=== PATIENT | male | born 1985 | race Caucasian/White ===

== ENCOUNTER 2017-03-04 02:56 | Emergency (ER) | payer MEDICAID ==
[2017-03-04] MEDS ORDERED: ONDANSETRON HCL IV 4 MG/2 ML VIAL IVP ONE (03:00)
[2017-03-04] MEDS ORDERED: 0.9 % SODIUM CHLORIDE 1000ML 1,000 ML IV SCH (03:00)
[2017-03-04] MEDS ORDERED: KETOROLAC 30 MG/ML VIAL IVP ONE (03:00)
--- NOTE | 2017-03-04 03:04 | Emergency Department Record ---
History of Present Illness - General Chief Complaint: Abdominal Pain Stated Complaint: ABDOMINAL PAIN Source: Patient Mode of Arrival: EMS Limitations: No limitations - History of Present Illness Initial Comments: 31 yo male presents to ED with a CC of right sided upper abdominal pain that began suddenly while using a punching bag prior to arrival. Patient reports nausea/vomiting x 1, denies health problems at his baseline, denies previous surgery. Patient denies difficultly in breathing, reports oxygen helped with his pain symptoms. MD Complaint: Abdominal pain Onset/Timin -: Minutes(s) Location: RUQ Radiation: R flank Severity: Moderate Quality: Aching Consistency: Constant Improves With: Nothing Worsens With: Movement Associated Symptoms: Vomiting - Related Data Previous Rx's Medication Instructions Recorded Hydrocodone/Acetaminophen [Weston 1 tab PO Q6H PRN #10 tab 03/04/17 5mg/325mg] Tamsulosin HCl [Flomax] 0.4 mg PO DAILY #14 cap.er.24h 03/04/17 Allergies Allergy/AdvReac Type Severity Reaction Status Date / Time CHOCOLATE Allergy ANAPHYLAXIS Uncoded 10/24/16 22:15 Review of Systems Constitutional: Denies: Chills, Fever, Malaise, Night sweats Eyes: Denies: Eye discharge, Eye pain, Photophobia ENT: Denies: Congestion, Ear pain, Epistaxis Respiratory: Denies: Cough, Dyspnea Cardiovascular: Denies: Chest pain, Dyspnea on exertion Endocrine: Denies: Fatigue, Heat or cold intolerance Gastrointestinal: Reports: Abdominal pain, Nausea, Vomiting Genitourinary: Denies: Incontinence, Retention Musculoskeletal: Denies: Arthralgia, Back pain, Gout, Joint swelling Skin: Denies: Bruising, Change in color Neurological: Denies: Abnormal gait, Confusion, Headache, Seizure Psychiatric: Denies: Anxiety Hematological/Lymphatic: Denies: Anemia, Blood Clots Past Medical History - SOCIAL HISTORY Smoking Status: Current every day smoker Drug Use: None - RESPIRATORY Hx Respiratory Disorders: No - CARDIOVASCULAR Hx Cardio Disorders: Yes Hx Heart Attack: Yes (X 2 "PROBABLY 2-3 YRS AGO" no stents) - NEURO Hx Neuro Disorders: Yes Hx Seizures: Yes (2-3 YRS AGO) - GI Hx GI Disorders: No - Hx Genitourinary Disorders: No - ENDOCRINE Hx Endocrine Disorders: No - MUSCULOSKELETAL Hx Musculoskeletal Disorders: No - PSYCH Hx Psych Problems: No - HEMATOLOGY/ONCOLOGY Hx Hematology/Oncology Disorders: No Family Medical History Hx Heart Disease: Father Physical Exam - General General Appearance: Alert, Oriented x3, Cooperative, Moderate distress Limitations: No limitations - Head Head exam: Atraumatic, Normocephalic, Normal inspection Head exam detail: negative: Abrasion, Contusion, Koehler's sign, General tenderness, Hematoma, Laceration - Eye Eye exam: Normal appearance. negative: Conjunctival injection, Periorbital swelling, Periorbital tenderness, Scleral icterus - ENT Ear exam: negative: Auricular hematoma, Auricular trauma Nasal Exam: negative: Active bleeding, Discharge, Dried blood, Foreign body Mouth exam: negative: Drooling, Laceration, Muffled voice, Tongue elevation - Neck Neck exam: Normal inspection. negative: Meningismus, Tenderness - Respiratory Respiratory exam: Normal lung sounds bilaterally. negative: Rales, Respiratory distress, Rhonchi, Stridor - Cardiovascular Cardiovascular Exam: Regular rate, Normal rhythm, Normal heart sounds - GI/Abdominal GI/Abdominal exam: Soft, Tenderness, Other (TTP RUQ on examination, no rebound or guarding present.). negative: Rebound, Rigid - Rectal Rectal exam: Deferred - exam: Deferred - Extremities Extremities exam: Normal inspection. negative: Pedal edema, Tenderness - Back Back exam: Denies: CVA tenderness (R), CVA tenderness (L) - Neurological Neurological exam: Alert, Oriented X3 - Psychiatric Psychiatric exam: Normal affect, Normal mood - Skin Skin exam: Normal color. negative: Abrasion Type of lesion: negative: abrasion Course - Reevaluation(s) Reevaluation #1: 03/04/17 03:54 Patient reassessed, reports that his pain symptoms are improved from 10/10 to 5/ 10 following Toradol. Labs reviewed, WBC 14.3, labs are otherwise grossly unremarkable for an acute process. UA pending. Reevaluation #2: 03/04/17 04:22 CT Abdomen and Pelvis: 4 mm calculi proximal right ureter. UA sent to lab, awaiting result. Patient was updated on results thus far, reports that he is feeling much better. Reevaluation #3: 03/04/17 04:55 UA reviewed and appears negative for infection. Patient appears much improved and stable for discharge at this time. Medical Decision Making - Lab Data Result diagrams: 03/04/17 03:07 03/04/17 03:07 Disposition Disposition: Discharge Clinical Impression: Kidney stone on right side Disposition: Home, Self-Care Condition: (2) Stable Instructions: Kidney Stones (ED) Additional Instructions: Return to ED if your symptoms worsen or if you have any concerns. Weston and Flomax as directed. Follow-up with Dr. Ibrahim in 1-3 days as directed. Prescriptions: Tamsulosin HCl [Flomax] 0.4 mg PO DAILY #14 cap.er.24h Hydrocodone/Acetaminophen [Weston 5mg/325mg] 1 tab PO Q6H PRN #10 tab PRN Reason: Pain - General Referrals: QUAN IBRAHIM M.D. [MEDICAL DOCTOR] - Forms: Patient Portal Access Time of Disposition: 04:57
[2017-03-04 03:12] LABS: BASO % 0.1 % (0-6); EOS % 0.4 % (0-6); GRAN % 69.8 % (47-80); HEMOGLOBIN 13.3 gm/dl (14.0-18.0); LYMPH % 22.7 % (16-45); MEAN CELL VOLUME 93.2 fl (81-97); MEAN CORPUSCULAR HGB CONC 33.3 g/dl (32-36); MEAN PLATELET VOLUME 9.8 fl (7.4-10.4); PLATELET COUNT 316 K/uL (130-400); RED BLOOD COUNT 4.29 M/uL (4.40-5.70); RED CELL DISTRIBUTION WIDTH 12.9 % (11.5-14.5); WHITE BLOOD COUNT W/O DIFF 14.3 K/uL (4.2-12.2)
[2017-03-04 03:23] LABS: ALB/GLOB RATIO 1.4 (1.1-1.8); ALBUMIN 3.8 gm/dL (3.5-5.0); ALKALINE PHOSPHATASE 63 U/L (38-126); ALT/SGPT 22 U/L (21-72); ANION GAP 8.2 (7-16); AST/SGOT 13 U/L (17-59); BILIRUBIN,TOTAL 0.14 mg/dL (0.2-1.3); BLOOD UREA NITROGEN 12 mg/dL (9-20); CARBON DIOXIDE 27.8 mmol/L (22-30); CREATININE 0.8 mg/dL (0.66-1.25); EST GLOMERULAR FILTRATION RATE > 60 ml/min; GLUCOSE,RANDOM 85 mg/dL (70-110); TOTAL PROTEIN 6.6 gm/dL (6.3-8.2)
[2017-03-04 04:30] LABS: URINE APPEARANCE CLEAR; URINE BILIRUBIN NEGATIVE (NEGATIVE); URINE BLOOD LARGE (NEGATIVE); URINE COLOR YELLOW; URINE GLUCOSE (UA) NEGATIVE (NEGATIVE); URINE KETONE NEGATIVE (NEGATIVE); URINE LEUKOCYTE ESTERASE NEGATIVE (NEGATIVE); URINE NITRITE NEGATIVE (NEGATIVE); URINE PROTEIN NEGATIVE (NEGATIVE); URINE UROBILINOGEN 0.2 E.U./dL (0.20 - 1.00)
[2017-03-04 04:48] LABS: URINE RBC >50 (NONE SEEN)
[2017-03-04 04:49] LABS: URINE AMORPHOUS SEDIMENT 4+; URINE WBC 0 - 2 (0-2/hpf)
== END 2017-03-04 05:11 | disposition home or self-care (01) ==
LOC: ER 02:56
DX: N13.2 Hydronephrosis with renal and ureteral calculous obstruction (principal); R11.2 Nausea with vomiting, unspecified
CPT/HCPCS: 74177; 80053; 81001; 85025; 96361; 96374; 96375; 99284; J1885; J2405; J7030